=== PATIENT | female | born 1950 | race African-American/Black ===

== ENCOUNTER 2024-04-16 20:59 | Emergency (ER) | payer MEDICARE, MEDICAID, SELFPAY ==
[2024-04-16 21:18] VITALS: BP 122/68; PULSE 81; O2SAT 98
[2024-04-16 21:34] VITALS: BP 112/67; PULSE 69; RESP 20; TEMP 36.8; O2SAT 97; BMI 28.0
--- NOTE | 2024-04-16 22:27 | ED_ITS ---
HPI - General Adult General Chief complaint: General Medical Stated complaint: possible uti, blood in brief when changed Time Seen by Provider: 04/16/24 22:21 Source: patient Mode of arrival: ambulatory Limitations: no limitations History of Present Illness HPI narrative: Patient's history of CVA right hemiparesis noticed bright red blood in the brief when was changing patient denied any pain no fever no chills no nausea /vomiting patient is on Plavix Related Data Previous Rx's ?Medication ?Instructions ?Recorded cefuroxime axetil 250 mg tablet 250 mg PO BID 7 days #14 tabs 04/17/24 Allergies Allergy/AdvReac Type Severity Reaction Status Date / Time No Known Allergies Allergy Verified 04/16/24 21:37 Review of Systems 2 Review of Systems: Yes all other systems are reviewed and are negative [facility] Social History Social History Advance Directives: Yes Advance Directives on File: Yes Advance Directives Date on File: 04/16/24 Physical Exam ED Vital Signs: Vital Signs - 24 hr 04/16/24 21:34 04/17/24 00:02 04/17/24 00:50 Temperature 98.2 F 98.1 F 98.1 F Pulse Rate 69 62 62 Respiratory Rate 20 16 16 Blood Pressure 112/67 116/64 116/64 Pulse Oximetry 97 97 97 Oxygen Delivery Method Room Air Room Air Room Air BMI result Body Mass Index 28.0 Appearance: Alert. Oriented X3. No acute distress. Eyes: PERRLA, No Nystagmus ENT: Pharynx normal. Oral Mucosa moist Neck: Normal inspection. Neck supple. CVS: Normal heart rate and rhythm. Pulses normal. Respiratory: No respiratory distress. Equal air entry bilateral, no wheezing/rales/rhonchi Abdomen: Soft and nontender. Bowel sounds are present, no mass palpable, no CVA tenderness Skin: Skin warm and dry. Normal skin color. Normal skin turgor. Extremities: No lower extremity edema. No calf tenderness Neuro: Oriented X 3. Left hemiparesis Medications Administered Discontinued Medications Generic Name Dose Route Start Last Admin Trade Name Freq PRN Reason Stop Dose Admin Ceftriaxone Sodium 1 gm/ 50 mls @ 100 mls/hr 04/16/24 23:42 04/17/24 00:51 Sodium Chloride IV 04/17/24 00:11 Infused ONCE ONE Infusion Medical Decision Making Medical Decision Making [facility] Narrative: Patient with mild intermittent hematuria with 4+ bacteria leukocyte in the urine suggestive of UTI will start on Ceftin was given a dose of Rocephin in the ER no signs of sepsis Differential Diagnosis Differential Diagnoses: The differential diagnosis associated with the presentation includes UTI/hematuria/kidney stone Lab Data [facility] Lab Attestation statement: I reviewed the patient's lab results. 04/16/24 23:58 04/16/24 23:58 Labs: Lab Results 04/16/24 04/16/24 Range/Units 23:03 23:58 WBC 4.2 L (4.8-10.8) X10*3/uL RBC 4.09 L (4.20-5.50) X10*6/uL Hgb 12.5 (12.0-16.0) g/dl Hct 37.4 (37.0-47.0) % MCV 91.4 (80.0-98.0) fL MCH 30.6 (27.0-33.0) pg MCHC 33.4 (31.0-35.0) g/dl RDW 12.0 (11.0-16.0) % Plt Count 430 H (160-400) X10*3/uL MPV 9.1 L (9.4-12.3) fL Immature Gran % (Auto) 0.2 (0.0-0.4) % Neut % (Auto) 44.4 L (45-73) % Lymph % (Auto) 41.3 H (20-40) % Page % (Auto) 10.0 (2-11) % Eos % (Auto) 2.9 (0-4) % Baso % (Auto) 1.2 (0-2) % Lymph # (Auto) 1.7 (1.2-4.9) X10*3/uL Page # (Auto) 0.4 (0.1-1.2) X10*3/uL Eos # (Auto) 0.1 (0.0-0.4) X10*3/uL Baso # (Auto) 0.1 (0.0-0.2) X10*3/uL Abs Immat Gran (auto) 0.01 (0.00-0.03) X10*3/uL Absolute Neuts (auto) 1.9 L (2.0-8.3) x10*3/uL Absolute Nucleated RBC 0.000 (0.0-0.012) X10*3/uL Nucleated RBC % (auto) 0.0 (0.0-0.2) /100WBC Sodium 140 (135-145) mmol/L Potassium 3.9 (3.3-5.1) mmol/L Chloride 106 (96-108) mmol/L Carbon Dioxide 28 (22-29) mmol/L Anion Gap 10 L (12-20) BUN 13 (9-16) mg/dL Creatinine 0.64 (0.5-1.4) mg/dL Estim Creat Clear Calc 87.2 Estimated GFR > 60 Random Glucose 95 (60-115) mg/dL Calcium 10.0 (8.4-10.2) mg/dL Total Bilirubin 0.9 (0.0-1.0) mg/dL AST 20 (5-31) U/L ALT 16 (0-31) U/L Alkaline Phosphatase 94 (39-117) U/L Total Protein 7.4 (6.5-8.0) g/dL Albumin 4.2 (3.5-5.0) g/dL Urine Color Red A Urine Appearance Turbid Urine pH 7.0 (5.0-9.0) Ur Specific [place] 1.015 (1.005-1.025) Urine Protein 30 (1+) H (Neg-Trace) mg/dL Urine Glucose (UA) Negative (Negative) mg/dL Urine Ketones Negative (Negative) mg/dL Urine Blood Large (3+) H (Negative) Urine Nitrite Negative (Negative) Ur Leukocyte Esterase Large (3+) H (Negative) Urine RBC >20 H (0-2) /HPF Urine WBC >50 H (0-5) /HPF Ur Squamous Epith Cells 0-2 (0-2) /HPF Urine Bacteria 4+ (None Seen) Hyaline Casts 0-2 (0-2) /LPF Discharge Plan Discharge Clinical Impression: UTI (urinary tract infection) Patient Disposition: Home, Self-Care Instructions: Urinary Tract Infection in Older Adults (ED) Additional Instructions: Drink plenty of fluids Take antibiotic as prescribed Report if increased urinary bleed Prescriptions: New cefuroxime axetil 250 mg tablet 250 mg PO BID 7 Days Qty: 14 0RF Interventions: ED Discharge Assessment Last Done: 04/17/24 00:50 Print Language: Russian
--- NOTE | 2024-04-16 23:05 | PC.NURSE ---
Patient straight cath'd with second RN She at bedside, urine intially blood tinged, after ~50ccs hematuria noted. UA sent. Small bleeding laceration noted above urethra.
[2024-04-16 23:13] LABS: Appearance Urine Turbid; Color Urine Red; Glucose Urine UA Negative (Negative); Leukocyte Esterase Urine Large (3+) (Negative); Nitrite Urine Negative (Negative); Specific Gravity - Urine 1.015 (1.005-1.025); UMIC TRIGGER UACC YES; Urine Blood Large (3+) (Negative); Urine Ketones Negative (Negative); Urine Protein 30 (1+) mg/dL (Neg-Trace)
[2024-04-16 23:17] LABS: Bacteria Urine 4+ (None Seen); Hyaline Casts Urine 0-2 /LPF (0-2); RBC Urine >20 /HPF (0-2); Squamous Epithelial Cell Urine 0-2 /HPF (0-2); UACC Culture Trigger YES; WBC Urine >50 /HPF (0-5)
[2024-04-17 00:02] VITALS: BP 116/64; PULSE 62; RESP 16; TEMP 36.7; O2SAT 97
[2024-04-17 00:05] LABS: MANUAL DIFF FLAG NO
[2024-04-17 00:07] LABS: Basophils Absolute Auto 0.1 X10*3/uL (0.0-0.2); Basophils Percent Auto 1.2 % (0-2); Eosinophils Absolute Auto 0.1 X10*3/uL (0.0-0.4); Eosinophils Percent Auto 2.9 % (0-4); Hematocrit 37.4 % (37.0-47.0); Hemoglobin 12.5 g/dl (12.0-16.0); Imm Gran Abs Auto 0.01 X10*3/uL (0.00-0.03); Imm Gran Pct Auto 0.2 % (0.0-0.4); Lymphocytes Absolute Auto 1.7 X10*3/uL (1.2-4.9); Lymphocytes Percent Auto 41.3 % (20-40); Mean Corpuscular HGB Conc 33.4 g/dl (31.0-35.0); Mean Corpuscular Hemoglobin 30.6 pg (27.0-33.0); Mean Corpuscular Volume 91.4 fL (80.0-98.0); Mean Platelet Volume 9.1 fL (9.4-12.3); Monocytes Absolute Auto 0.4 X10*3/uL (0.1-1.2); Neutrophils Absolute Auto 1.9 x10*3/uL (2.0-8.3); Neutrophils Percent Auto 44.4 % (45-73); Platelet Count 430 X10*3/uL (160-400); Red Blood Count 4.09 X10*6/uL (4.20-5.50); White Blood Count 4.2 X10*3/uL (4.8-10.8)
[2024-04-17] MEDS: cefTRIAXone sodium 1 GM in 0.9 % Sodium Chloride 50 ML IV (00:09)
[2024-04-17 00:20] LABS: Alanine Aminotransferase 16 U/L (0-31); Albumin Level 4.2 g/dL (3.5-5.0); Alkaline Phosphatase 94 U/L (39-117); Anion Gap 10 (12-20); Aspartate Amino Transferase 20 U/L (5-31); Bilirubin Total 0.9 mg/dL (0.0-1.0); Blood Urea Nitrogen 13 mg/dL (9-16); Carbon Dioxide 28 mmol/L (22-29); Chloride 106 mmol/L (96-108); Creatinine Clr Calc Pharmacy 87.2; Estimated Glomerular Filt Rate > 60; Glucose Random 95 mg/dL (60-115); Potassium 3.9 mmol/L (3.3-5.1); Sodium 140 mmol/L (135-145); Total Protein 7.4 g/dL (6.5-8.0)
[2024-04-17 00:50] VITALS: BP 116/64; PULSE 62; RESP 16; TEMP 36.7; O2SAT 97
== END 2024-04-17 03:20 | disposition home or self-care (01) ==
PROVIDERS: Emergency Provider Internal Medicine; PCP Internal Medicine
DX: N39.0 Urinary tract infection, site not specified (principal); I69.951 Hemiplegia and hemiparesis following unspecified cerebrovascular disease affecting right dominant side
CPT/HCPCS: 36415; 80053; 81001; 85025; 87086; 87088; 87186; 96365; 99283; 99284; J0696

== ENCOUNTER 2025-07-05 13:54 | Emergency (ER) | payer MEDICARE, MEDICAID, SELFPAY ==
--- NOTE | 2025-07-05 | ECG_ITS ---
Test Reason : RTA PAIN Blood Pressure : */* mmHG Vent. Rate : 99 BPM Atrial Rate : * BPM P-R Int : * ms QRS Dur : 82 ms QT Int : 340 ms P-R-T Axes : * -37 51 degrees QTcB Int : 436 ms Atrial fibrillation Left axis deviation Minimal voltage criteria for LVH, may be normal variant ( R in aVL ) Nonspecific ST and T wave abnormality Abnormal ECG No previous ECGs available Referred By: Generic ED Physician Electronically Signed By: Pavel Germain
--- NOTE | ~2025-07-05 | CT_ITS ---
EXAMINATION: CT HEAD WITHOUT CONTRAST CLINICAL INFORMATION: severe headache COMPARISON: None available. TECHNIQUE: Contiguous axial imaging was performed from the skull base to vertex without intravenous administration of contrast. This CT examination was performed using dose optimization techniques as appropriate, variously including the following: *Automated exposure control *Adjustment of mA and/or kV according to patient size (this includes techniques or standardized protocols for targeted exams where dose is matched to indication/reason for exam; i.e. extremities or head) *Use of iterative reconstruction technique DLP: 736 mGy-cm FINDINGS: Bilateral, multifocal patchy and confluent white matter hypodensities involving centrum semiovale and zaidi radiata. Old lacunar infarcts, basal ganglia and extracapsular and zaidi radiata mostly on the left hemisacrum.. Wallerian degeneration into the left midbrain. Sellar/suprasellar region demonstrated no gross masses. Normal position of the cerebellar tonsils. Calcified plaques in the V3 V4 segments, basilar artery cavernous and supraclinoid segments both ICAs. No air-fluid levels in the paranasal sinuses. Tympanic cavities and mastoid cells are aerated. No acute fracture in the bony calvarium. CT/CT head/brain wo IV con IMPRESSION: No acute intracranial hemorrhage. 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 Atherosclerosis disease, intracranial. Electronically signed by: Daron Reese MD 07/05/2025 03:22 PM EDT
[2025-07-05 14:04] VITALS: BP 156/85; BP 175/92; PULSE 94; PULSE 96; RESP 17; TEMP 36.6; O2SAT 98; BMI 28.9
[2025-07-05 14:09] VITALS: BP 175/92; PULSE 94; RESP 17; TEMP 36.6; O2SAT 98
--- NOTE | 2025-07-05 14:24 | ED_ITS ---
HPI - Neuro Symptoms/Deficit General Chief Complaint: Stroke Stated Complaint: CANO,RT ARM PAIN PER EMS Time Seen by Provider: 07/05/25 14:16 Source: patient, EMS and old records reviewed Mode of arrival: EMS Limitations: no limitations History of Present Illness ED Provider: KAI GASTELUM Narrative: 74 yo female with PMH of CVA - R sided hemiparesis, HTN, HLD, takes plavix, UTI here with c/o abrupt onset R posterior occipital headache started yesterday at rest. No nausea/vomiting. Eyes are blurry and painful. She denies any new weakness. She has taken tylenol without relief. No fevers, trauma, chiropractor issue, no rash, she is compliant with her medications. She also has pain in R side of her body as well starting yesterday this has happened in the past post stroke. She notes she does not get headaches this is new. Occurred at rest. Has worsened throughout the day Onset (ago): day(s) (yesterday ) Location: other History of same: No Severity: severe Quality: constant Relieving factors: none Exacerbating factors: none Context: gradual onset and sudden onset On Anticoagulants: No Associated symptoms: headaches Treatments Prior to Arrival: none Related Data Previous Rx's ?Medication ?Instructions ?Recorded cefuroxime axetil 250 mg tablet 250 mg PO BID 7 days # 14 tabs 04/17/24 Allergies Allergy/AdvReac Type Severity Reaction Status Date / Time No Known Allergies Allergy Verified 07/05/25 14:05 Review of Systems 2 Review of Systems: Constitutional : No Fever, No Chills, No Fatigue ENT/Mouth : No sore throat, No Rhinorrhea Eyes: No Eye Pain, No Swelling, No Redness Cardiovascular : No Chest Pain, No SOB, No Dyspnea on Exertion Respiratory : No Cough, No Sputum Gastrointestinal : No Nausea, No Vomiting, No Diarrhea, No abdominal Pain Genitourinary : No Dysuria, No Urinary Frequency, No Hematuria, Musculoskeletal : pos joint pain, No Myalgias, No Joint Swelling Skin : No Skin Lesions, No rash Neuro : No Weakness, No Numbness, No Dizziness, positive Headache All other systems reviewed and are negative PMFSH Past Medical History Attestation statement: The following information was validated with the patient. Source: old records reviewed Medical History Acute CVA (cerebrovascular accident) HLD (hyperlipidemia) HTN (hypertension) Social History Social History Smoked in Last 30 Days: No Use of substances other than those prescribed or required for medical reasons: No Advance Directives: Yes Advance Directives on File: Yes Advance Directives Date on File: 04/16/24 Do you have a plan to hurt others: No Plan Physical Exam 2 Vital Signs: Vital Signs: Last Vital Signs Temp 98.2 F 07/05/25 16:17 Pulse 83 07/05/25 16:17 Resp 14 07/05/25 16:17 BP 152/77 H 07/05/25 16:17 Pulse Ox 95 07/05/25 16:17 O2 Del Method Room Air 07/05/25 16:17 BMI result Body Mass Index 28.9 Appearance: Alert. Oriented X3. No acute distress. Eyes: Pupils equal, round and reactive to light. Speech slightly slow to respond at baseline but very comprehensible not slurred ENT: Pharynx normal. Neck: Normal inspection. Neck supple. no midline ttp no rash no meningeal signs no scalp lesion seen CVS: Normal heart rate and rhythm. Pulses normal. Respiratory: No respiratory distress. Breath sounds normal. Abdomen: Soft and nontender. Skin: Skin warm and dry. Normal skin color. Normal skin turgor. Extremities: No lower extremity edema. No calf ttp Neuro: Oriented X 3. R sided hemiparesis No sensory deficit. Medications Administered Discontinued Medications Generic Name Dose Route Start Last Admin Trade Name Freq PRN Reason Stop Dose Admin Acetaminophen 1,000 mg in 100 mls @ 400 mls/hr 07/05/25 15:49 07/05/25 16:29 Ofirmev IV 07/05/25 16:03 Infused ONCE ONE Infusion Morphine Sulfate 4 mg 07/05/25 14:36 07/05/25 14:58 Morphine Sulfate 4 Mg/Ml Cartridge IVPUSH 07/05/25 14:37 4 mg ONCE ONE Administration Protocol Ondansetron HCl 4 mg 07/05/25 14:36 07/05/25 14:59 Ondansetron Hcl 4 Mg/2 Ml Vial IVPUSH 07/05/25 14:37 4 mg ONCE ONE Administration Medical Decision Making Medical Decision Making MDM Narrative: 74 yo female with PMH of CVA - R sided hemiparesis, HTN, HLD, takes plavix, UTI here with c/o headache x 1 day, eye pain, no fevers, no trauma. She is at baseline with prior stroke at this time will need IV pain control, BP monitoring, CT head for ICH/mass, it was gradual at rest and has worsened seems unlikely to be SAH and with one day of symptoms she has no meningeal signs. will obtain basic labs, no new neuro deficits and no signs of new stroke. No signs of dissection and no recent trauma or neck manipulations. Differential Diagnosis Differential Diagnoses: The differential diagnosis associated with the presentation includes ICH, HTN headache, viral syndrome, Admission/Observation Consideration of admission/observation: Escalation of care including admission/observation considered feels much better no acute bleeding HTN controlled and labs reassuring spoke to son and patient she is feeling much better stable for DC she is at baseline neg covid, neg labs, neg UA CT scan reassuring son did relay his sister was just diagnosed with brain tumor and the patient has repeatedly asked if she had something in the back of her head he is wondering if she is worried she has tumor too Lab Data MDM Lab Attestation statement: I reviewed the patient's lab results. 07/05/25 14:41 07/05/25 14:41 Labs: Lab Results 07/05/25 07/05/25 07/05/25 Range/Units 14:41 15:59 16:18 WBC 6.8 (4.8-10.8) X10*3/uL RBC 3.97 L (4.20-5.50) X10*6/uL Hgb 13.4 (12.0-16.0) g/dl Hct 38.6 (37.0-47.0) % MCV 97.2 (80.0-98.0) fL MCH 33.8 H (27.0-33.0) pg MCHC 34.7 (31.0-35.0) g/dl RDW 11.7 (11.0-16.0) % Plt Count 319 D (160-400) X10*3/uL MPV 9.3 L (9.4-12.3) fL Immature Gran % (Auto) 0.3 (0.0-0.4) % Neut % (Auto) 74.2 H (45-73) % Lymph % (Auto) 18.4 L (20-40) % [place] % (Auto) 6.3 (2-11) % Eos % (Auto) 0.4 (0-4) % Baso % (Auto) 0.4 (0-2) % Lymph # (Auto) 1.3 (1.2-4.9) X10*3/uL [place] # (Auto) 0.4 (0.1-1.2) X10*3/uL Eos # (Auto) 0.0 (0.0-0.4) X10*3/uL Baso # (Auto) 0.0 (0.0-0.2) X10*3/uL Abs Immat Gran (auto) 0.02 (0.00-0.03) X10*3/uL Absolute Neuts (auto) 5.1 (2.0-8.3) x10*3/uL Absolute Nucleated RBC 0.000 (0.0-0.012) X10*3/uL Nucleated RBC % (auto) 0.0 (0.0-0.2) /100WBC PT 11.0 (10.9-12.4) SEC INR 1.0 (0.9-1.1) Sodium 144 (135-145) mmol/L Potassium 3.9 (3.3-5.1) mmol/L Chloride 106 (96-108) mmol/L Carbon Dioxide 26 (22-29) mmol/L Anion Gap 16 (12-20) BUN 12 (9-16) mg/dL Creatinine 0.68 (0.5-1.4) mg/dL Estim Creat Clear Calc 82.1 Estimated GFR > 60 Random Glucose 108 (60-115) mg/dL Calcium 10.0 (8.4-10.2) mg/dL Magnesium 2.6 (1.6-2.6) mg/dL Total Bilirubin 1.3 H (0.0-1.0) mg/dL AST 24 (5-31) U/L ALT 13 (0-31) U/L Alkaline Phosphatase 96 (39-117) U/L Troponin I High Sens 4.7 (<3.5-17.0) ng/L Total Protein 8.3 H (6.5-8.0) g/dL Albumin 4.9 (3.5-5.0) g/dL Urine Color Yellow Urine Appearance Clear Urine pH 7.5 (5.0-9.0) Ur Specific [place] 1.015 (1.005-1.025) Urine Protein Negative (Neg-Trace) mg/dL Urine Glucose (UA) Negative (Negative) mg/dL Urine Ketones Negative (Negative) mg/dL Urine Blood Negative (Negative) Urine Nitrite Negative (Negative) Ur Leukocyte Esterase Trace H (Negative) Urine RBC 0-2 (0-2) /HPF Urine WBC 0-5 (0-5) /HPF Ur Squamous Epith Cells 0-2 (0-2) /HPF Urine Bacteria None Seen (None Seen) Hyaline Casts 0-2 (0-2) /LPF Influenza Type A (PCR) NEGATIVE (Negative) Influenza Type B (PCR) NEGATIVE (Negative) RSV RNA Qual (PCR) NEGATIVE (Negative) SARS-CoV-2 RNA (RT-PCR) NEGATIVE (Negative) Independent Interpretation I performed an independent interpretation of an: EKG and CT Scan (no ICH) Interpretation: Rate: 99 Rhythm: NSR [place]: left, LVH Normal P waves. Normal JANE. Normal QRS complex. ST T wave : no SARAH, artifact noted qTC: 436 prior studies: no acute ischemia The study has been interpreted contemporaneously by me. . Radiology Impression Discussion of test interpretation with radiology: I have reviewed the radiologist's reading. Independent Historian Clinical information obtained from an independent historian. History obtained from or confirmed by: EMS son is here as well he is HCP External Record Review External record reviewed: Outpatient record Prescription Management I considered prescription management with: Other Discharge Plan Discharge Clinical Impression: Acute headache Qualifiers: Headache type: unspecified Intractability: not intractable Qualified Code(s): R 51.9 - Headache, unspecified Patient Disposition: Home, Self-Care Instructions: Acute Headache (ED) Additional Instructions: labs reassuring no mass or bleeding seen on CT scan negative for COVID/FLU/RSV normal UA return for any worsening symptoms or concerns rest and stay hydrated. Prescriptions: No Action cefuroxime axetil 250 mg tablet 250 mg PO BID 7 Days Qty: 14 0RF Print Language: Urdu
[2025-07-05 14:47] LABS: MANUAL DIFF FLAG NO
[2025-07-05 14:49] LABS: Hematocrit 38.6 % (37.0-47.0); Hemoglobin 13.4 g/dl (12.0-16.0); Imm Gran Abs Auto 0.02 X10*3/uL (0.00-0.03); Imm Gran Pct Auto 0.3 % (0.0-0.4); Lymphocytes Absolute Auto 1.3 X10*3/uL (1.2-4.9); Mean Corpuscular HGB Conc 34.7 g/dl (31.0-35.0); Mean Corpuscular Hemoglobin 33.8 pg (27.0-33.0); Mean Corpuscular Volume 97.2 fL (80.0-98.0); NRBC Abs Auto 0.000 X10*3/uL (0.0-0.012); NRBC Pct Auto 0.0 /100WBC (0.0-0.2); Platelet Count 319 X10*3/uL (160-400); Red Blood Count 3.97 X10*6/uL (4.20-5.50); White Blood Count 6.8 X10*3/uL (4.8-10.8)
[2025-07-05 14:58] VITALS: RESP 12
[2025-07-05 15:01] LABS: INTERNATIONAL NORM RATIO 1.0 (0.9-1.1); Prothrombin Time 11.0 SEC (10.9-12.4)
[2025-07-05 15:06] LABS: Alanine Aminotransferase 13 U/L (0-31); Albumin Level 4.9 g/dL (3.5-5.0); Alkaline Phosphatase 96 U/L (39-117); Anion Gap 16 (12-20); Aspartate Amino Transferase 24 U/L (5-31); Blood Urea Nitrogen 12 mg/dL (9-16); Calcium 10.0 mg/dL (8.4-10.2); Carbon Dioxide 26 mmol/L (22-29); Chloride 106 mmol/L (96-108); Creatinine Clr Calc Pharmacy 82.1; Estimated Glomerular Filt Rate > 60; Magnesium 2.6 mg/dL (1.6-2.6); Potassium 3.9 mmol/L (3.3-5.1); Sodium 144 mmol/L (135-145); Total Protein 8.3 g/dL (6.5-8.0)
[2025-07-05 15:14] LABS: Troponin-I High Sensitivity 4.7 ng/L (<3.5-17.0)
[2025-07-05 16:17] VITALS: BP 152/77; PULSE 83; RESP 14; TEMP 36.8; O2SAT 95
[2025-07-05 16:25] LABS: Appearance Urine Clear; Glucose Urine UA Negative (Negative); PH 7.5 (5.0-9.0); Specific Gravity - Urine 1.015 (1.005-1.025); UMIC TRIGGER UACC YES
[2025-07-05 16:43] LABS: Resp Syncy Virus RNA Qual PCR NEGATIVE (Negative); SARS COV2 PCR INHOUSE NEGATIVE (Negative)
[2025-07-05 17:29] VITALS: BP 152/77; PULSE 83; RESP 14; TEMP 36.8; O2SAT 95
== END 2025-07-05 18:26 | disposition home or self-care (01) ==
PROVIDERS: Emergency Provider Emergency Medicine
DX: R51.9 Headache, unspecified (principal); I10 Essential (primary) hypertension; E78.5 Hyperlipidemia, unspecified; I69.351 Hemiplegia and hemiparesis following cerebral infarction affecting right dominant side; Z03.818 Encounter for observation for suspected exposure to other biological agents ruled out; Z79.899 Other long term (current) drug therapy; Z79.01 Long term (current) use of anticoagulants
CPT/HCPCS: 36415; 70450; 80053; 81001; 83735; 84484; 85025; 85610; 87637; 93005; 96365; 96375; 99284; 99285; J0131; J2270; J2405

== ENCOUNTER → 2025-07-05 14:23 | Outpatient (BNV) | payer MEDICARE, MEDICAID, SELFPAY | PROVIDERS: Emergency Provider Emergency Medicine; Visit Provider Internal Medicine Cardiovascular Disease | DX: I48.91 Unspecified atrial fibrillation (principal) | CPT/HCPCS: 93010 ==

== ENCOUNTER → 2025-07-05 14:36 | Outpatient (BNV) | payer MEDICARE, MEDICAID, SELFPAY | PROVIDERS: Emergency Provider Emergency Medicine; Visit Provider Radiology Diagnostic Radiology | DX: I67.2 Cerebral atherosclerosis (principal) | CPT/HCPCS: 70450 ==